=== PATIENT | male | born 1990 | race Caucasian/White ===

== ENCOUNTER 2022-08-07 21:25 | Emergency (ER) | payer OTHER ==
[2022-08-07 21:34] VITALS: BP 168/92
--- NOTE | 2022-08-07 21:56 | XRAY Report ---
PROCEDURE: Ankle 3 View RT INDICATIONS: Trauma TECHNIQUE: 3 views of the ankle were acquired. COMPARISON: None. FINDINGS: Bones: No fractures or dislocations. Ankle mortise is normally aligned. No suspicious bony lesions . Soft tissues: No tibiotalar joint effusion. Achilles tendon appears normal. IMPRESSION: 1. No fracture or dislocation. Reviewed by: Macario Ramos MD on 08/07/2022 9:55 PM PDT Approved by: Macario Ramos MD on 08/07/2022 9:55 PM PDT Station ID: [id number]
--- NOTE | 2022-08-07 22:31 | ED Physician Documentation ---
PD HPI LOWER EXT INJURY - Stated complaint Stated Complaint: RT ANKLE INJURY - Chief complaint Chief Complaint: Trauma Ext - History obtained from History obtained from: Patient - Additional information Additional information: HPI from patient. Patient c/o right ankle pain, sudden onset at approximately 2 PM today when he was walking and stepped on a tree root, causing inversion of his right ankle. Pain is exacerbated with weight-bearing and palpation PD PAST MEDICAL HISTORY - Past Medical History Past Medical History: No - Allergies Allergies/Adverse Reactions: Allergies Allergy/AdvReac Type Severity Reaction Status Date / Time No Known Drug Allergies Allergy Verified 08/07/22 21:31 PD ED PE NORMAL - Vitals Vital signs reviewed: Yes - General General: Alert and oriented X 3, No acute distress, Well developed/nourished - Derm Derm: Normal color, Warm and dry - Extremities Extremities: No edema, Other (FROM right ankle but exacerbation of pain elicited with full flexion, extension. TTP across anterior aspect of right ankle joint) Results - Vitals Vitals: Oxygen O2 Source Room air - Rads (name of study) right ankle xrays Relevant Findings:: EMP independent interpretation of test (xrays reviewed by me: no evidence of acute injury including frature, dislocation), See rad report PD Medical Decision Making - ED course Complexity details: reviewed results, re-evaluated patient, considered differential, d/w patient ED course: no abnormalities on right ankle plain-film xrays. Results d/w patient, return precautions reviewed. Departure - Departure Disposition: 01 Home, Self Care Clinical Impression: Ankle sprain Qualifiers: Encounter type: initial encounter Involved ligament of ankle: unspecified ligament Laterality: right Qualified Code(s): S93.401A - Sprain of unspecified ligament of right ankle, initial encounter Condition: Good Instructions: ED Sprain Ankle Follow-Up: LIBAN DUVALL [Primary Care Provider] - Comments: Your ankle x-rays were normal; no evidence of fracture or dislocation. As we discussed, sprains do not show up on x-ray and that this is the likely diagnosis at this point. You have been provided a splint and I recommend that you use the splint during the day for the next 3 days, and then you can continue to use the splint if it seems to be helping. The purpose of the splint in this case is to minimize movement of the ankle which, in turn, will speed the healing process. Similarly, I recommend you use your crutches (you have indicated that you have crutches at home) for the next 2 to 3 days to minimize weight-bearing on the ankle; again, this is to speed the healing process. Follow-up with your primary care provider in 5 to 7 days if you continue to have any symptoms such as pain or limitation in range of motion. Discharge Date/Time: 08/07/22 23:08
== END 2022-08-07 23:08 | disposition home or self-care (01) ==
LOC: ED 21:25
DX: S93.401A Sprain of unspecified ligament of right ankle, initial encounter (principal); X50.1XXA Overexertion from prolonged static or awkward postures, initial encounter; Y93.01 Activity, walking, marching and hiking
CPT/HCPCS: 99283